=== PATIENT | female | born 1970 | race Caucasian/White ===

== ENCOUNTER 2017-01-14 10:44 | Day surgery (SDC) | payer BC ==
[2017-01-13 11:55] LABS: HEMATOCRIT 39.6 % (36.0-48.0); HEMOGLOBIN 13.4 g/dL (12.0-16.0)
[2017-01-13 12:07] LABS: A/G RATIO 1.3 (0.7-1.9); BUN (BLOOD UREA NITROGEN) 9 MG/DL (6-23); CALCIUM, SERUM 8.7 MG/DL (8.5-10.4); CHLORIDE, SERUM 104 MMOL/L (96-112); CO2 (CARBON DIOXIDE) 30 MMOL/L (24-34); CREATININE 0.69 MG/DL (0.55-1.02); GFR AFRICAN AMERICAN 121 ML/MIN (>=60); GFR NON AFRICAN AMERICAN 104 ML/MIN (>=60); GLOBULIN 3.1 G/DL (2.5-4.1); GLUCOSE, SERUM 87 MG/DL (60-99); POTASSIUM, SERUM 3.8 MMOL/L (3.5-5.3); SGOT(AST) 18 U/L (5-40); SGPT(ALT) 22 U/L (5-65); SODIUM, SERUM 140 MMOL/L (135-148); TOTAL PROTEIN 7.1 G/DL (6.0-8.5)
[2017-01-13 12:08] LABS: ALKALINE PHOSPHATASE 65 U/L (45-117); TOTAL BILIRUBIN 1.1 MG/DL (0-1.2)
--- NOTE | ~2017-01-14 | OP ---
Record Of Operation [facility] [address] [place]. [address] NAME: YURI MILLER : 70 STATUS : [facility] [place] PAT#: [id number] AGE: 46 ADM/REG DATE : 01/14/17 MR#: [id number] REPORT SERV DATE: 01/17/17 DICTATED BY: JOSE FRANCISCO SMITH DATE: 01/17/17 REPORT STATUS : Draft TRANSCRIBED BY: MODL DATE: 01/17/17 DATE OF PROCEDURE: 01/14/2017 PREOPERATIVE DIAGNOSIS: Chronic cholecystitis. POSTOPERATIVE DIAGNOSIS: Chronic cholecystitis. PROCEDURE: Laparoscopic cholecystectomy (2 site). SURGEON: Jose Francisco Smith M.D. DESCRIPTION OF OPERATIVE PROCEDURE: The patient was brought to the operating suite, placed in supine position, underwent satisfactory general endotracheal anesthesia without incident. The skin of the abdomen was scrubbed, prepped, and draped in usual sterile fashion. 0.5% Marcaine with epinephrine utilized as supplemental local anesthesia at all intended trocar sites. Initially, an infraumbilical incision was performed dissecting through the skin and subcutaneous tissue to the umbilical fascia. This was in turn grasped and elevated, and a disposable Veress insufflation needle was inserted through the umbilical fascia into the peritoneal cavity following which a rigid forward-viewing 10 mm laparoscope was inserted. Visualization of the intraabdominal parietes revealed no evidence of injury from initial insufflation or puncture. Cursory examination of the pelvis was normal. Attention was turned to the upper abdomen where an additional 5 mm trocar was placed to the right of falciform ligament. An additional 5 mm grasping instrument inserted through the umbilical trocar next to the umbilical fascia. Fundus and body of the gallbladder grasped and elevated exposing the infundibular region. Dissection of triangle of Calot was successful in identifying, skeletonizing, and isolating the cystic duct and cystic duct common duct junction as well as the cystic artery. Both of these structures were controlled with multiple applications of the Weck 5 mm polymer clip system and divided. Then, using spatula cautery dissection, the peritoneal attachments to the gallbladder and liver were divided. The gallbladder was removed from the subhepatic space. Hemostasis was assured. Next, the camera was switched to the 5 mm epigastric port. The gallbladder was grasped by its neck through the umbilical port and withdrawn through the umbilicus and delivered. It was opened and found to contain no stones. CO2 was allowed to egress from peritoneal cavity. No muscular bleeding was noted. The umbilicus was closed with [id number] suture of 0 Vicryl, subcutaneous tissue closed at all sites with interrupted 4-0 Vicryl and running subcuticular stitch of 4-0 Vicryl for the skin. Dermabond skin adhesive placed. Record Of Operation [address] [place]. [address] NAME: YURI MILLER : 70 STATUS : [facility] [place] PAT#: [id number] AGE: 46 ADM/REG DATE : 01/14/17 MR#: [id number] REPORT SERV DATE: 01/17/17 DICTATED BY: JOSE FRANCISCO SMITH DATE: 01/17/17 REPORT STATUS : Draft TRANSCRIBED BY: NELIA DATE: 01/17/17 The patient tolerated the procedure well and was returned to PACU in stable condition. At termination of procedure, sponge, needle, lap, and instrument counts were correct x3. Estimated blood loss was less than 5 mL. MALINI/NELIA Jose Francisco Smith M.D. / [id number] CC: Chepe Gomes M.D.
[~2017-01-14 10:44] MED LIST: ACAI PO; ASA5GR PO; B COMPLETE PO; BIOTIN PO; CINNAMON PO; FLAG500TAB PO; FOLIC ACID PO; FOSAMAX35 MG PO; GARLIC OIL PO; IBU-200200 MG PO; MAGNESIUM PO; PROTONIX20 MG PO; RANITIDINE300 MG PO; [UNRECOGNIZED DRUG - OTHER] PO; [UNRECOGNIZED DRUG - OTHER] PO
== END 2017-01-14 19:05 | disposition home or self-care (01) ==
LOC: SDC 10:44
PROVIDERS: Specialist
PROC: 0FT44ZZ Resection of Gallbladder, Percutaneous Endoscopic Approach (ICD-10-PCS; principal; 2017-01-14 11:30)
DX: K81.1 Chronic cholecystitis (principal); K21.9 Gastro-esophageal reflux disease without esophagitis; M81.0 Age-related osteoporosis without current pathological fracture; Z88.0 Allergy status to penicillin; Z88.5 Allergy status to narcotic agent; Z98.890 Other specified postprocedural states; Z90.49 Acquired absence of other specified parts of digestive tract; Z90.89 Acquired absence of other organs; Z79.899 Other long term (current) drug therapy; Z79.1 Long term (current) use of non-steroidal anti-inflammatories (NSAID)
CPT/HCPCS: 80053; 84703; 85014; 85018; 88304; A9270-GY; J0690; J1170; J2250; J2405; J2550; J2710; J3010